=== PATIENT | female | born 1945 ===

== ENCOUNTER 2018-07-19 07:32 | Day surgery (SDC) | payer MEDICARE ==
--- NOTE | 2018-07-15 08:36 | Pre-Procedure Note/Attestation ---
Pre-Procedure Note/Attestation Complete Prior to Procedure Planned Procedure: bilateral Procedure Narrative: 1- Ptosis correction upper lids. 2- Entropion correction upper lids. 3- Blepharoplasty uppers lids. Indications for Procedure Pre-Operative Diagnosis: 1- Blepharoptosis upper lids 2- Entropion upper lids. 3- Blepharochalasis upper lids Attestation I attest that I discussed the nature of the procedure; its benefits; risks and complications; and alternatives (and the risks and benefits of such alternatives ), prior to the procedure, with the patient (or the patient's legal medical device sales representative). I attest that, if there was a reasonable possibility of needing a blood transfusion, the patient (or the patient's legal medical device sales representative) was given the [place] [employer] standardized written summary, pursuant to the Demond Sari Blood Safety Act ([place] Health and Safety Code # 1645, as amended). I attest that I re-evaluated the patient just prior to the surgery and that there has been no change in the patient's H&P, except as documented below: Collins Klein MD Jul 15, 2018 08:36
[2018-07-19] VITALS (10 sets, daily range): BP systolic 122–148; BP diastolic 49–68
[~2018-07-19] VITALS: Ht 157.5 cm; Wt 53.1 kg
[~2018-07-19 07:32] MED LIST: ALLOPURINOL100 M1 ORAL; ATORVASTATIN CA10 MG ORAL; Akten 3.5% 1ml Btl BOTH EYES ONE; BSS 15ml BTL ONE; BSS 500ml btl ONE; CELLCEPT500 MG ORAL; Dexamethasone 4mg/ml vial ONE; EPINEPHrine 1mg/1ml Amp ONE; JANUVIA50 MG ORAL; LANSOPRAZOLE30 MG ORAL; LISINOPRIL40 MG ORAL; Lidocaine 1% MPF 10mg/ml 5ml ONE; METOPROLOL TAR100 M1 ORAL; Maxitrol Opth Oint 3.5gm BOTH EYES ONE; NORVASC10 MG ORAL; PREDNISONE5 MG ORAL; Povidone-Iodine 5% opth solution ONE; Sodium Hyaluronate 10 mg/ml 0.85ml ONE
[2018-07-19] MEDS ORDERED: Lidocaine 1% MPF 10mg/ml 5ml ONE ×2 (07:33→10:00)
[2018-07-19] MEDS ORDERED: Akten 3.5% 1ml Btl ONE (08:20)
[2018-07-19] MEDS ORDERED: BYSTOLIC10 MG ORAL (08:33)
[2018-07-19] MEDS ORDERED: FOLIC ACID1 MG ORAL (08:33)
[2018-07-19] MEDS ORDERED: FUROSEMIDE40 MG ORAL (08:33)
[2018-07-19] MEDS ORDERED: DIALYVITE TABL1 EAC1 PO (08:33)
[2018-07-19] MEDS ORDERED: NEPHROVITE1 TAB ORAL (08:33)
[2018-07-19] MEDS ORDERED: [UNRECOGNIZED DRUG - OTHER] PO (08:33)
[2018-07-19] MEDS ORDERED: Lidocaine 2% 20mg/ml/Epi 0.005mg/ml 20ml vial ONE (09:46)
[2018-07-19] MEDS ORDERED: Tobradex Opth Oint 3.5gm ONE (09:46)
[2018-07-19] MEDS ORDERED: Bupivacaine 0.75% 30ml vial INJ ONE (09:47)
[2018-07-19] MEDS ORDERED: Midazolam 2mg/2ml Inj ONE (10:00)
[2018-07-19] MEDS ORDERED: NS Irrig 1000ml ONE (10:00)
[2018-07-19] MEDS ORDERED: Sterile Water Irrig 1000ml IRRIG ONE (10:00)
[2018-07-19] MEDS ORDERED: fentaNYL 100 mcg/2 mL IV ONE (10:00)
[2018-07-19] MEDS ORDERED: fentaNYL 100 mcg/2 mL IV PRN (10:45)
[2018-07-19] MEDS ORDERED: Atropine Inj 1mg/10ml Syr IV PRN (10:45)
[2018-07-19] MEDS ORDERED: DiphenhydrAMINE 50mg/ml Inj IVP PRN (10:45)
[2018-07-19] MEDS ORDERED: Midazolam 2mg/2ml Inj IVP PRN (10:45)
--- NOTE | 2018-07-19 11:58 | Anethesia Preoperative Eval ---
Anesthesia Pre-op PMH/ROS General Date of Evaluation: Jul 19, 2018 Time of Evaluation: 09:53 Anesthesiologist: sha ASA Score: ASA 4 Mallampati Score Class I : Soft palate, uvula, fauces, pillars visible Class II: Soft palate, uvula, fauces visible Class III: Soft palate, base of uvula visible Class IV: Only hard plate visible Mallampati Classification: Class II Surgeon: sasha Diagnosis: blepharochalasis blepharoptosis Surgical Procedure: bilateral upper blepharoplasty Anesthesia History: none Social History: smoking - nonsmoker Family History: no anesthesia problems Allergies: Coded Allergies: PENICILLINS (Verified Allergy, Severe, RASH, ITCHING, 08/29/13) SULFA (SULFONAMIDE ANTIBIOTICS) (Verified Allergy, Severe, RASH, ITCHING, 08/29/13) SULFAMETHOXAZOLE (Verified Allergy, Severe, 07/19/18) RASH, ITCHING TETRACYCLINES (Verified Allergy, Severe, RASH, ITCHING, 08/29/13) TRIMETHOPRIM (Verified Allergy, Severe, 07/19/18) RASH, ITCHING Medications: see eMAR Patient NPO?: Yes Past Medical History Cardiovascular: Reports: HTN, other - hypercholesterolemia Gastrointestinal/Genitourinary: Reports: GERD, ESRD - on peritoneal dialysis Endocrine: Reports: DM Hematology/Immune: Reports: other - sle Musculoskeletal/Integumentary: Reports: other - gout PSxH Narrative: hysterectomy Anesthesia Pre-op Phys. Exam Physician Exam Last Vital Signs Date Time Temp Pulse Resp B/P (MAP) Pulse Ox O2 Delivery O2 Flow Rate FiO2 07/19/18 08:06 97.6 51 18 135/ 98 Room Air Constitutional: NAD Neurologic: CN 2-12 intact Cardiovascular: RRR Respiratory: CTA Airway Exam Mallampati Score: Class II MO: limited Neck: flexible TMD: 2fb ROM: limited Anesthesia Pre-op A/P Labs Chemistry Test 07/19/18 08:25 Potassium Level 4.6 MMOL/L (3.5-5.1) Accucheck 95 Risk Assessment & Plan Assessment: asa4 Plan: mac Status Change Before Surgery: No Pre-Antibiotics Drug: Gabriella Gomez MD Jul 19, 2018 11:58
--- NOTE | 2018-07-19 12:03 | Discharge Summary ---
Discharge Summary Discharge Summary Discharge Summary DATE OF ADMISSION: 07/19/2018 DATE OF DISCHARGE: 07/19/2018 REASON FOR HOSPITALIZATION: 1- Ptosis upper lids 2- Entropion, upper lids 3- Dermatochalasis upper lids SURGERY PERFORMED: CONDITION IN THE HOSPITAL:The patient tolerated the surgery without complications. DISCHARGE CONDITION: The patient was stable at discharge. DISCHARGE MEDICATIONS: 1. Vigamox eye drops one drop q.i.d, OU 2. Prednisolone one drop q.i.d, OU 3. Keflex 500mg q8h 4- Maxitrol eye ointment apply to the wound POSTOPERATIVE ORDERS: The patient has to rest at home. No bending, No lifting, No watching Television tonight. POSTOPERATIVE FOLLOW UP: The patient will be followed in my office tomorrow morning at 7 o'clock. Collins Klein MD Jul 19, 2018 12:03
--- NOTE | 2018-07-19 12:03 | Immediate Post-Op Evaluation ---
Immediate Post-Op Evalulation Immediate Post-Op Evalulation Procedure: bilateral upper blepharoplasty Date of Evaluation: Jul 19, 2018 Time of Evaluation: 11:57 IV Fluids: 525ml 0.9ns 25ml d5 Blood Products: none Estimated Blood Loss: negligible Blood Pressure Systolic: 148 Blood Pressure Diastolic: 56 Pulse Rate: 57 Respiratory Rate: 18 O2 Sat by Pulse Oximetry: 100 Temperature (Fahrenheit): 97.8 Pain Score (1-10): 0 Nausea: No Vomiting: No - 10ml emesis @1130 toward the end of the case. D5 25ml infused preop accucheck 95. accucheck in PACU 128. pt without complaints Complications none Patient Status: awake, reacts, patent Hydration Status: adequate Drug: Gabriella Gomez MD Jul 19, 2018 12:03
--- NOTE | 2018-07-19 12:05 | Brief Operative Note ---
Immediate Post Operative Note Operative Note Chief Complaint: Droopy eyelids difficulty driving Pre-op Diagnosis: 1- Blepharoptosis upper lids 2- Entropion upper lids. 3- Blepharochalasis upper lids Procedure: 1- Ptosis correction upper lids 2- Entropion correction upper lids 3- Blepharoplasty, upper lids Surgeon: Collins Klein MD Medical Records Auditor: None Additional Surgeons: None Anesthesiologist: Dr. London Anesthesia: local, MAC Specimen: none Complications: none Fluids: 500ml Estimated Blood Loss: minimal Drains: none Implant(s) used?: No Collins Klein MD Jul 19, 2018 12:05
--- NOTE | 2018-07-19 12:05 | 48 Hour Post Anesthesia Eval ---
Post Anesthesia Evaluation Procedure: bilateral upper blepharoplasty Date of Evaluation: Jul 19, 2018 Time of Evaluation: 11:59 Blood Pressure Systolic: 145 0: 60 Pulse Rate: 60 Respiratory Rate: 18 Temperature (Fahrenheit): 97.8 O2 Sat by Pulse Oximetry: 100 Airway: patent Nausea: No Vomiting: No Pain Intensity: 0 Hydration Status: adequate Cardiopulmonary Status: Stable Mental Status/LOC: patient returned to baseline Post-Anesthesia Complications: none Follow-up care needed: N/A Gabriella London MD Jul 19, 2018 12:05
--- NOTE | 2018-07-20 16:45 | Operative Note - Dictated ---
DATE OF OPERATION: 07/19/2018 FACILITY: [facility]. SURGEON: Collins Klein M.D. NEWS ASSISTANT: None. ANESTHESIOLOGIST: Dr. Garcia. ANESTHESIA: Monitored anesthesia care (MAC) plus local anesthesia with lidocaine 2% and epinephrine 1:100,000 plus Marcaine 0.75% 50/50 mixture. PREOPERATIVE DIAGNOSES: 1. Ptosis, upper lids. 2. Entropion, upper lids. 3. Dermatochalasis and blepharochalasis, upper lids. POSTOPERATIVE DIAGNOSES: 1. Ptosis, upper lids. 2. Entropion, upper lids. 3. Dermatochalasis and blepharochalasis, upper lids. SURGERY PERFORMED: 1. Ptosis correction, upper lids. 2. Entropion correction, upper lids. 3. Blepharoplasty, upper lids. INDICATION FOR SURGERY: The patient is a 73-year-old lady with history of diabetes mellitus, hypertension, osteoarthritis, and hypercholesterolemia. The patient is taking medications including insulin, metformin, atorvastatin, amlodipine, metoprolol, Januvia, and . The patient is taking pain medication. She is not allergic to any medication. She is not a smoker and she is not a drinker. She is complaining of blurry vision and difficulty driving because of upper eyelids droopiness. She is suffering from severe blepharochalasis with ptosis and entropion of the upper lids. This is a progressive dermatochalasis skin disease, which results in change in the corneal curvature with induces astigmatism and covers visual axis, which is interruption with driving. The severity of the patient's dermatochalasis, ptosis, and entropion of the upper lids is clearly demonstrated on the enclosed photos and the patient's visual benavides as well. The only solution for this patient is correction of all those disfigurement and anatomic changes with surgery. There is no alternative for that. INFORMED CONSENT: The nature of the surgery, risks, benefits, alternatives, and potential complications were explained in detail to the patient in her language, Hungarian through an insulation nozzleman. She voiced understanding. The potential complications including, but not limited to bleeding, infection, corneal exposure, overcorrection, undercorrection, ecchymosis, swelling of the face, hematoma, dry eye syndrome, loss of eyelashes, loss of eyebrows, inequality of both eyes, change in vision, even loss of vision, and loss of the eye, and were all explained in detail to the patient, who voiced understanding and accepted all the complications. Then, she signed the consent form, which is in the chart. DESCRIPTION OF SURGERY AND FINDINGS: Following that, the patient was taken to the operation room in a stable condition. Lidocaine gel, Akten 3.5% were applied to the conjunctivae of both eyes. Following that, the upper eyelids were marked with a marking pen 10 mm above the root of the eyelashes and 15 mm below the lower part of the eyebrows. About 25 mm of the skin was left to facilitate eye closure. IV sedation was given by the anesthesiologist, Dr. Garcia. After adequate anesthesia and sedation has been achieved, the upper eyelids and eyebrows were anesthetized with 2% lidocaine with epinephrine mixed with Marcaine 0.75%. Following that, using a Bovie knife, the skin and subdermal tissue were dissected from the orbicularis oculi muscle and excised. A cut was made into the orbicularis oculi muscle. Hemostasis was performed. The two fat compartments were released. The fat compartments were sculptured conservatively. Following that, levator palpebrae superioris muscle aponeurosis were tacked 6 mm and stitched with 6-0 Vicryl. The sutures were trimmed and hemostasis was performed. Following that, a wedge groove was made 3 mm above the root of the upper eyelid lashes. Following that, the tarsal material inside the groove was excised with Vannas scissors. The lips of the groove were stitched with 6-0 Vicryl and the stitches were trimmed and hemostasis was performed. Following that, the orbicularis oculi muscles were stitched with 6-0 Vicryl. The sutures were trimmed and hemostasis was performed. At the end of the surgery, the skin was closed using 6-0 plain gut in the fashion of continuous running. At the end of the surgery, Vigamox eye drops were applied to the conjunctivae and Maxitrol eye ointment was applied to the wound. The patient tolerated the surgery without complications. Following that, the patient was transferred to the recovery room. In the recovery room, cold compress were applied to the area. The area was checked for bleeding. There was no bleeding. No leakage. Postoperative orders and directions were given to the patient. The patient will be discharged home upon stabilization. The patient will be followed in my office tomorrow morning. Collins Klein M.D. DR: STEPHENIE JOB#: [id number] CC:
== END 2018-07-19 14:00 | disposition home or self-care (01) ==
LOC: SUR 07:32
DX: H02.034 Senile entropion of left upper eyelid (principal); H02.031 Senile entropion of right upper eyelid; H02.34 Blepharochalasis left upper eyelid; H02.31 Blepharochalasis right upper eyelid; H02.834 Dermatochalasis of left upper eyelid; H02.831 Dermatochalasis of right upper eyelid; E11.22 Type 2 diabetes mellitus with diabetic chronic kidney disease; I12.0 Hypertensive chronic kidney disease with stage 5 chronic kidney disease or end stage renal disease; N18.6 End stage renal disease; Z99.2 Dependence on renal dialysis; Z79.4 Long term (current) use of insulin; M32.9 Systemic lupus erythematosus, unspecified; I25.10 Atherosclerotic heart disease of native coronary artery without angina pectoris; E78.00 Pure hypercholesterolemia, unspecified; D64.9 Anemia, unspecified; K21.9 Gastro-esophageal reflux disease without esophagitis; M10.9 Gout, unspecified; Z90.710 Acquired absence of both cervix and uterus; Z88.1 Allergy status to other antibiotic agents; Z88.0 Allergy status to penicillin; Z88.2 Allergy status to sulfonamides
CPT/HCPCS: 15823; 36415; 67924; 82962; 84132; J2250; J2405; J3010; J3490; 94003; 94150